=== PATIENT | male | born 1945 | race Caucasian/White ===

== ENCOUNTER 2019-02-02 10:28 | Outpatient (RCR) | payer MEDICARE, OTHER ==
--- NOTE | 2019-02-02 12:30 | Diagnostic Imaging Report ---
PROCEDURE: US Bilateral lower extremity arterial. TECHNIQUE: Multiple real-time grayscale images are obtained through both lower extremity arterial systems with color Doppler imaging and color Doppler spectral analysis. INDICATION: Leg pain and swelling. COMPARISON: There are no prior studies available for comparison. FINDINGS: There is fairly good arterial blood flow to both lower extremities. Triphasic and biphasic waveforms are seen in the common femoral, superficial femoral, and popliteal arteries. The waveforms in the trifurcation arteries do seem dampened, but there is no abrupt alteration to suggest a hemodynamically significant stenosis. IMPRESSION: There may be an element of trifurcation disease bilaterally, but there is no hemodynamically significant stenosis identified. Dictated by: Dictated on workstation # [id number]
== END 2019-05-03 | disposition home or self-care (01) ==
LOC: RAD 10:28
PROVIDERS: ATTEND Internal Medicine Interventional Cardiology
DX: I73.9 Peripheral vascular disease, unspecified (principal); I25.10 Atherosclerotic heart disease of native coronary artery without angina pectoris
CPT/HCPCS: 93306; 93922; 93925

== ENCOUNTER → 2019-04-19 | Outpatient (CLI) | payer MEDICARE ==
[~2019-04-19] MED LIST: HOLD METFORMIN - RECEIVED CONTRAST 20 ML VIAL IV SCH; IOHEXOL 350 MG/ML 100 ML (OMNIPAQUE 350) VIAL IV ONE; NS 100 ML (IVPB) BAG IV ONE
[2019-04-19 16:40] LABS: BUN/CREATININE RATIO 14; CREATININE SERUM 0.96 MG/DL (0.60-1.30); GFR ESTIMATED > 60
--- NOTE | 2019-04-19 18:19 | Diagnostic Imaging Report ---
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 FINDINGS: CTA of the neck demonstrates emphysematous changes in the upper lungs. Degenerative changes are present in the cervical spine. No fracture or subluxation is present. Sternotomy changes are present in the chest. The soft tissues of the neck demonstrate no abnormal adenopathy. The airway is clear. Vascular structures demonstrate mild atherosclerosis at the takeoff of the great vessels. The vertebral arteries appear normal. These are a little larger than normal with left being larger than the right. No stenotic lesions are present in the vertebral arteries. The basilar artery is smaller than the vertebral arteries. This is probably due to the subclavian steal. The intracranial circulation is not included. There is short segment occlusion at the origin of the right subclavian artery. No stenosis is present in the common carotid artery. There is some plaque within the right internal carotid artery and carotid bulb. No significant stenosis is identified. Left carotid artery demonstrates some mild plaque within the bulb and internal carotid. No stenosis is present. IMPRESSION: 1. There is occlusion of the right subclavian artery at its origin with reconstitution near the right vertebral artery. Both vertebral arteries are prominent in size consistent with subclavian steal. Some mild plaque is present within the carotid bifurcations and internal carotid arteries. It is a little worse on the right than the left. 2. Degenerative changes are present in the spine. 3. Emphysematous changes are present in the lungs. Dictated by: Dictated on workstation # [id number]
== END ==
LOC: RAD 16:09
PROVIDERS: ATTEND Internal Medicine Interventional Cardiology
DX: I77.1 Stricture of artery (principal); I65.29 Occlusion and stenosis of unspecified carotid artery; M43.9 Deforming dorsopathy, unspecified; M47.812 Spondylosis without myelopathy or radiculopathy, cervical region; Z98.890 Other specified postprocedural states
CPT/HCPCS: 36415; 70498; 82565; 84520

== ENCOUNTER → 2019-06-17 | Outpatient (CLI) | payer MEDICARE ==
[~2019-06-17] MED LIST changes: +CATHETER FLUSH 10 ML SYR IV PRN; -HOLD METFORMIN - RECEIVED CONTRAST 20 ML VIAL IV SCH; -IOHEXOL 350 MG/ML 100 ML (OMNIPAQUE 350) VIAL IV ONE; -NS 100 ML (IVPB) BAG IV ONE; +REGADENOSON 0.4 MG/5 ML SYR (LEXISCAN) IV ONE
[2019-06-18 12:35] VITALS: BP 169/77
--- NOTE | 2019-06-18 12:35 | Cardiology Stress Test Report ---
Stress Test Report Type of NM Stress Test: Test Type: LEXISCAN 0.4MG/5ML Date of Procedure/Referring: Date of Procedure: Jun 17, 2019 PCP Ivet Salgado MD Admitting Physician No,Local Physician Indications: Chest pain, CAD Baseline Heart Rate: 78 Baseline Blood Pressure: Blood Pressure Systolic: 169 Blood Pressure Diastolic: 77 Baseline EKG: Baseline EKG: sinus rhythm with multiform PVCs Summary & Conclusion: Summary: The patient was brought to the stress lab after informed consent was taken. Stress test was performed according to the Lexiscan protocol. 0.4 mg of IV Lexiscan was given. Low-grade exercise was performed. Baseline EKG showed sinus rhythm with multiform PVCs at 78 BPM. Initial blood pressure was 169/77 mmHg. Maximum heart rate was 88 bpm and blood pressure 181/74 mmHg. Patient did not have any chest pain. However she continued to have multiform PVCs. Stress EKG demonstrated ST depression in leads V3 and V4 as well as 2, 3, aVF which resolved during recovery. 10.77 mCi of Myoview were given for rest imaging and 30.2 mCi of Myoview given for stress imaging. Transient ischemic dilatation score 0.99, possible moderate-sized anterior distal apical reversible defect. Fixed inferior defect. Conclusion: Pharmacological stress test was positive for ischemia. 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 Possible ischemia in the distal anterior apical territory. Coronary angiography is recommended. Ivet SALGADO MD Jun 18, 2019 12:35
== END ==
LOC: CARD 09:44
PROVIDERS: ATTEND Internal Medicine Interventional Cardiology
DX: I25.10 Atherosclerotic heart disease of native coronary artery without angina pectoris (principal); E78.5 Hyperlipidemia, unspecified

== ENCOUNTER 2019-07-01 08:04 | Day surgery (SDC) | payer MEDICARE ==
[~2019-07-01] VITALS: Ht 172.7 cm; Wt 75.0 kg
[2019-07-01] VITALS (26 sets, daily range): BP systolic 129–191; BP diastolic 66–94
[2019-07-01] MEDS ORDERED: LIDOCAINE 1% INJ 20 ML 20 ML VIAL ONE (08:11)
[2019-07-01] MEDS ORDERED: HEParin (CATH LAB) 2,000 ML IV ONE (08:11)
[2019-07-01] MEDS ORDERED: NS IV 1000 ML 1,000 ML ONE (08:11)
[2019-07-01] MEDS ORDERED: NS IV 1000 ML 1,000 ML IV SCH (08:14)
[2019-07-01 08:49] LABS: HEMOGLOBIN 12.8 G/DL (13.3-17.7); MEAN PLATELET VOLUME 11.2 FL (7.4-10.4); RED CELL DISTRIBUTION WIDTH 14.8 % (10.0-14.5); WHITE BLOOD COUNT 5.9 10^3/uL (4.3-11.0)
[2019-07-01 09:14] LABS: INR 1.1 (0.8-1.4); PROTHROMBIN TIME PATIENT 14.2 SEC (12.2-14.7)
[2019-07-01 09:18] LABS: ALANINE AMINOTRANSFERASE 16 U/L (0-55); ALBUMIN 4.2 GM/DL (3.2-4.5); ALKALINE PHOSPHATASE 76 U/L (40-136); BILIRUBIN,TOTAL 0.8 MG/DL (0.1-1.0); BUN/CREATININE RATIO 12; CALCIUM 9.4 MG/DL (8.5-10.1); CARBON DIOXIDE 28 MMOL/L (21-32); CHLORIDE 103 MMOL/L (98-107); CREATININE SERUM 1.17 MG/DL (0.60-1.30); GFR ESTIMATED > 60; GLUCOSE 95 MG/DL (70-105); POTASSIUM 2.8 MMOL/L (3.6-5.0); SODIUM 143 MMOL/L (135-145); TOTAL PROTEIN 7.6 GM/DL (6.4-8.2)
[2019-07-01] MEDS ORDERED: MIDAZOLAM 5 MG/5 ML (VERSED) VIAL ONE (09:32)
[2019-07-01] MEDS ORDERED: fentaNYL INJECTION 100 MCG/2 ML AMP ONE ×2 (09:32→16:18)
[2019-07-01] MEDS ORDERED: CALC-140 PO ×2 (09:37)
[2019-07-01] MEDS ORDERED: ATOR80TA76 PO ×2 (09:37)
[2019-07-01] MEDS ORDERED: TRAZ150T72 PO ×2 (09:37)
[2019-07-01] MEDS ORDERED: IPRA3AMP31 IH ×2 (09:37)
[2019-07-01] MEDS ORDERED: IPRA0.2S51 IH (09:37)
[2019-07-01] MEDS ORDERED: TRAM50TA2 PO ×2 (09:37)
[2019-07-01] MEDS ORDERED: APIX5TAB PO ×2 (09:37)
[2019-07-01] MEDS ORDERED: PANT40TA2 PO ×2 (09:37)
[2019-07-01] MEDS ORDERED: GABA-486 PO ×2 (09:37)
[2019-07-01] MEDS ORDERED: OMEG-86 PO ×4 (09:37)
[2019-07-01] MEDS ORDERED: FLDR.1T PO ×2 (09:37)
[2019-07-01] MEDS ORDERED: ASPI325T32 PO ×2 (09:37)
--- NOTE | 2019-07-01 09:42 | NUR ---
SPOKE WITH PT (HE DID NOT HEAR WELL BUT HIS WAS IN THE ROOM), HE BROUGHT HOME MEDS, AND I WAS ABLE TO COMPLETE THE MED REC. PT WAS ABLE TO COMMUNICATE HOW HE TOOK EACH OF HIS MEDICATIONS AND THEY ALL HAD GOOD DATING. PANTOPRAZOLE: BOTTLE SIG IS 1 TAB BID, BUT PT SAYS HE ONLY TAKES ONCE DAILY (PT SAYS IF HE TAKES BID HE HAS LOOSE STOOLS) OTC MEDS: ASPIRIN 325M DAILY CALCIUM WITH VIT D: 1 DAILY FISH OIL:1 CAP MORNING AND 2 CAPS BEDTIME
[2019-07-01] MEDS ORDERED: KCL 20 MEQ TAB (K-DUR) PO NR (09:45)
[2019-07-01] MEDS ORDERED: POTASSIUM CL 10MEQ/50ML IVPB 100 ML IV ONE ×2 (09:55→11:32)
[2019-07-01] MEDS: POTASSIUM CL 10MEQ/50ML IVPB 50 ML IV SCH ×5 (10:00→23:05)
[2019-07-01] MEDS ORDERED: HEParin 1000 UNIT/ML (10ML VIAL) FOR BOLUS ONE (10:32)
[2019-07-01] MEDS ORDERED: CLOPIDOGREL 300 MG (PLAVIX) TABLET PO ONE (11:22)
[2019-07-01] MEDS ORDERED: HEParin (CATH LAB) 1,000 ML IV ONE (12:26)
--- NOTE | 2019-07-01 12:38 | Cardiac Procedure Note-CS/ASA ---
Pre-Procedure Note Pre-Op Procedure Note H&P Reviewed The H&P was reviewed, patient examined and no changes noted. Date H&P Reviewed: Jul 01, 2019 Time H&P Reviewed: 09:00 Conscious Sedation Pre-Proced Time 09:00 ASA Score 3 For ASA 3 and 4: Consider anesthesia and medical clearance. Also, for patients with a history of failed moderate sedation consider anesthesia. Airway Lungs Heart ASA score ASA 1: a normal healthy patient ASA 2: a patient with a mild systemic disease (mid diabetes, controlled hypertension, obesity ASA 3: a patient with a severe systemic disease that limits activity (angina, COPD, prior Myocardial infarction) ASA 4: a patient with an incapacitating disease that is a constant threat to life (CHF, renal failure) ASA 5: a moribund patient not expected to survive 24 hrs. (ruptured aneurysm) ASA 6: a declared brain- patient whose organs are being harvested. For emergent operations, add the letter E after the classification Mallampati Classification Grade 1 Sedation Plan Analgesia, Amnesia, Plan communicated to team members, Discussed options with patient/fam, Discussed risks with patient/fam The patient is an appropriate candidate to undergo the planned procedure, sedation, and anesthesia. The patient immediately re-assessed prior to indication. Ivet QUEEN MD Jul 01, 2019 12:38
[2019-07-01] MEDS ORDERED: PATIENT MAY USE OWN MEDS, ALL PO SCH (12:45)
--- NOTE | 2019-07-01 12:58 | Coronary Angiography & PCI ---
Coronary Angiography & PCI DATE OF PROCEDURE: 07/01/19 INDICATION: 1. Chest pain, history of CAD, abnormal nuclear stress test. 2. Significant right arm claudication, right subclavian occlusion on CT angiography. 3. Lower extremity claudication with abnormal TRINO. PREOPERATIVE DIAGNOSIS: 1. Chest pain, history of CAD, abnormal nuclear stress test. 2. Significant right arm claudication, right subclavian occlusion on CT angiography. 3. Lower extremity claudication with abnormal TRINO. POSTOPERATIVE DIAGNOSIS: 1. Severe sun'aq CAD. 2. Occluded right subclavian artery. 3. Moderate to severe right external iliac artery in-stent restenosis. 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 He presented with complain of shortness of breath, chest pain, significant right arm claudication and peripheral claudication. CT angiography of the chest shows occluded right subclavian artery. Nuclear stress test was abnormal. Supranormal TRINO suggesting significant calcification. Therefore the patient was scheduled for subclavian angiography, possible subclavian intervention, coronary angiography, possible coronary intervention, peripheral angiography, peripheral intervention. PROCEDURES PERFORMED: 1.Coronary angiography. 2.Left heart catheterization. 3. Saphenous vein graft angiography. 4. PHAN angiography. 5. Aortic root injection; medical necessity, to locate ostia of the saphenous vein grafts. 6. Aortic arch angiography, medical necessity, to see the proximal segments of the great arteries including the right brachiocephalic artery. 7. Selective angiography of the right brachiocephalic artery. 8. Selective angiography of the common carotid artery. 9. Selective angiography of the left subclavian artery. 10. Abdominal aortogram with nonselective bilateral renal angiogram. 11. Bilateral lower extremity runoff. 12. MEDICATION CARE MANAGER to right external iliac artery in-stent restenosis. 13. PTCA to in-stent restenosis in the proximal RCA, drug-eluting stent to the ostial RCA. COMPLICATIONS: None. SPECIMENS: None. ESTIMATED BLOOD LOSS: 10 mL ANESTHESIA: Conscious sedation ANTICOAGULATION: IV heparin CONTRAST: 353 ml. FLUOROSCOPY: 11.6 minutes. FLOUROSCOPY DOSE: 2639 mgy. PROCEDURE DETAILS: The patient is a 72 male and was brought to the chemical laboratory scientist after informed consent was taken. All the risks and complications were explained in detail; this included the risk of bleeding, vascular damage, stroke, CO and even . The patient was draped and prepped in the usual sterile fashion. bilateral radial arteries have been used for previous 2 surgeries. Therefore access was gained in the right femoral artery with a 6 [place] sheath. left heart catheterization, cannulization of the right coronary artery and graft angiogram was done with a JR4 catheter. Left cardiac system was engaged with a JL4 catheter. FINDINGS: 1.Left main: moderate diffuse disease. 2.LAD: occluded in the midsegment. Diffuse disease. 3.Left circumflex artery: occluded at the ostium. 4.RCA: severe in-stent restenosis of the ostial/proximal RCA stent. Moderate diffuse disease distally. 5.Left heart catheterization: LV pressure 137/4 mmHg. LVEDP 8 mmHg. Aortic pressure 136/60 mmHg. Normal LV function with no significant wall motion abnormalities. No gradient across the aortic valve. 6. Aortic root angiogram, did not show any evidence of aneurysm or dissection. Faint filling of one saphenous vein graft was noted. 7. Aortic arch angiogram, no evidence of aneurysm or dissection. Patent proximal segments of the great arteries. 8. Selective angiogram of the right brachiocephalic artery was done with a JR4 catheter. No significant disease in the brachiocephalic artery as well as the vertebral artery. However occluded subclavian artery at the ostium with no stump. 9. Selective angiogram of the common carotid artery did not show any significant disease in the proximal and midsegment. 10. Selective angiogram of the left subclavian artery did not show any significant disease in the proximal and mid left subclavian artery. 11. PHAN angiography: Atretic PHAN. Likely not used during previous CABG. 12. 2 occluded saphenous vein grafts. 13. Y shaped saphenous vein graft with 2 limbs. One limb to OM artery. It has severe mid stenosis 95 percent. The second limb supplies the mid LAD. This has severe ostial stenosis 95 percent. 14. Abdominal aortogram did not show any significant severe disease. No significant obvious disease of bilateral renal arteries. 15. Bilateral lower extremity runoff: Stents are noted in the right common iliac and external iliac artery. Moderate to severe stenosis of the right external iliac artery stent. Pullback done with a straight catheter. Gradient was over 15 mmHg. Mild disease in the right SFA. No significant disease in the popliteal artery. Three-vessel runoff below the knee, however visualization was not optimum below the knee since the patient moved. Mild diffuse disease in the left common leg artery, external iliac artery, femoral artery, popliteal artery with likely three-vessel runoff below the knee. RECOMMENDATIONS: 1. MEDICATION CARE MANAGER to the right external iliac artery in-stent restenosis is recommended. 2. PTCA/stent to the in-stent restenosis in the right ostium/proximal RCA stent is recommended. INTERVENTION DETAILS: 1. Right external iliac artery intervention: The lesion was crossed with a 035 wire. We took an SeeClickFix 35 6 x 40 x 80 balloon and 2 inflations were done at 10 liza for 3 minutes. The first inflation was done within the stent. And the second inflation was done to involve the portion just distal to the stent. Excellent results were noted. The wire and balloon were taken out with brisk flow and minimal residue stenosis. 2. PCI to the RCA: Plavix was given before the intervention. 600 mg. ACT was done once which was over 190 seconds therefore further heparin was given. JR4 guide catheter. IV heparin for anticoagulation. Whisper extra-support wire. The lesion was crossed with the whisper wire and the tip of the wire was placed distally. Dampening was noted with the guide catheter. We took the NC Quantum 2.5 x 15 mm balloon and did high pressure balloon of the entire stent segment at 1 12 liza for 31 seconds, 16 liza for 33 seconds, 18 liza for 24 seconds, 18 liza for 36 seconds. However there was still ostial stenosis noted therefore a science Yoon 2.5 x 12 mm stent was placed at 14 liza for 20 seconds. Postdilatation with the same NC Quantum balloon at 20 liza for 41 seconds. The midsegment of the previous stent was also postdilated at 20 liza for 35 seconds. Reasonable results with 20-30 percent residue stenosis. The wire and balloon were taken out. Brisk flow. No symptoms. CONCLUSIONS: 1. severe in-stent restenosis of the RCA treated with PTCA and stent to the ostium with satisfactory results. 2. Severe right external iliac artery in-stent restenosis treated successfully with a PDA with excellent results. 3. Occluded right subclavian artery at the ostium with no stump therefore intervention was not done. Will likely require brachial access for the intervention. 4. Y-shaped saphenous vein graft to the LAD and left circumflex artery. Both have high-grade stenosis in the 95 percent range. Possible staged intervention. 5. Aspirin, Plavix, Eliquis for a month. He will then DC aspirin and continue on Plavix and Eliquis long-term. 6. Observe overnight and give IV fluids. 7. Discussed at length with the family. Monique Salgado MD, FACP, FACC, [facility] Interventional Cardiology Ivet SALGADO MD Jul 01, 2019 12:58
[2019-07-01] MEDS: NS IV 1000 ML 1,000 ML IV SCH (14:30)
[2019-07-01] MEDS ORDERED: fentaNYL INJECTION 100 MCG/2 ML AMP IVP PRN ×2 (16:15)
[2019-07-01] MEDS ORDERED: ATROPINE INJECTION 1 MG/10 ML SYR (ABBOTT) ONE (16:18)
[2019-07-01] MEDS ORDERED: OMEGA 3 (FISH OIL) 1000 MG CAP PO ONE (20:30)
[2019-07-01] MEDS ORDERED: GABAPENTIN 100 MG (NEURONTIN) CAP PO ONE (20:30)
[2019-07-01] MEDS ORDERED: traZODone 150 MG (DESYREL) TABLET PO ONE (20:30)
[2019-07-01] MEDS ORDERED: APIXABAN 5 MG (ELIQUIS) TABLET PO ONE (20:30)
[2019-07-01 21:05] LABS: BUN/CREATININE RATIO 10; CALCIUM 8.8 MG/DL (8.5-10.1); CARBON DIOXIDE 25 MMOL/L (21-32); CHLORIDE 108 MMOL/L (98-107); GFR ESTIMATED > 60; GLUCOSE 84 MG/DL (70-105); MAGNESIUM 1.5 MG/DL (1.6-2.4); POTASSIUM 3.4 MMOL/L (3.6-5.0); SODIUM 145 MMOL/L (135-145)
[2019-07-01] MEDS: MAGNESIUM 1 GM/100 ML IVPB 100 ML IV SCH (23:05)
[2019-07-02] VITALS (13 sets, daily range): BP systolic 93–127; BP diastolic 33–61
[2019-07-02] MEDS: MAGNESIUM 1 GM/100 ML IVPB 100 ML IV SCH
[2019-07-02] MEDS: NS IV 1000 ML 1,000 ML IV SCH ×2 (02:57→08:49)
[2019-07-02 03:43] LABS: HEMOGLOBIN 12.6 G/DL (13.3-17.7); MEAN PLATELET VOLUME 11.3 FL (7.4-10.4); RED CELL DISTRIBUTION WIDTH 15.2 % (10.0-14.5)
[2019-07-02 04:10] LABS: BUN/CREATININE RATIO 10; CALCIUM 8.6 MG/DL (8.5-10.1); CARBON DIOXIDE 23 MMOL/L (21-32); CHLORIDE 107 MMOL/L (98-107); CREATININE SERUM 1.08 MG/DL (0.60-1.30); GFR ESTIMATED > 60; GLUCOSE 103 MG/DL (70-105); POTASSIUM 3.6 MMOL/L (3.6-5.0); SODIUM 142 MMOL/L (135-145)
[2019-07-02 04:48] LABS: MAGNESIUM 2.2 MG/DL (1.6-2.4); PHOSPHORUS 2.4 MG/DL (2.3-4.7)
[2019-07-02] MEDS ORDERED: NS IV 500 ML 500 ML ONE (05:49)
[2019-07-02] MEDS: POTASSIUM CL 10MEQ/50ML IVPB 50 ML IV SCH ×3 (06:00→06:30)
[2019-07-02] MEDS ORDERED: POTASSIUM CL 10MEQ/50ML IVPB 50 ML IV SCH (06:00)
[2019-07-02] MEDS ORDERED: KCL 20 MEQ TAB (K-DUR) PO SCH (06:00)
[2019-07-02] MEDS ORDERED: MAGNESIUM 1 GM/100 ML IVPB 100 ML IV SCH (06:00)
[2019-07-02] MEDS ORDERED: CLOPIDOGREL 75 MG (PLAVIX) TABLET PO SCH (09:00)
[2019-07-02] MEDS ORDERED: CLOP75TA69 PO ×2 (10:42)
--- NOTE | 2019-07-02 11:02 | Cardiology Discharge Summary ---
Diagnosis/Chief Complaint Date of Admission 07/01/2019 Date of Discharge 07/02/2019 Admission Diagnosis Right upper extremity claudication, Chest pain, abnormal nuclear stress test, Claudication, abnormal TRINO Final/Discharge Diagnosis CAD, Right subclavian occlusion, Severe right iliac stenosis treated successfully with balloon angioplasty. 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 He presented with complain of shortness of breath, chest pain, significant right arm claudication and peripheral claudication. CT angiography of the chest shows occluded right sub clavian artery. Nuclear stress test was abnormal. Supranormal TRINO suggesting significant calcification. Therefore the patient was scheduled for subclavian angiography, possible subclavian intervention, coronary angiography, possible coronary intervention, peripheral angiography, peripheral intervention. Discharge Summary Procedures Subclavian angiography reveals occluded right subclavian artery. Will require staged procedure with likely brachial approach. Coronary angiography reveals severe in-stent restenosis in the proximal RCA stent which was treated with balloon angioplasty and drug-eluting stent. Y-shaped saphenous vein graft to the LAD and left circumflex artery has severe disease in both the limbs, will likely require staged procedure. Severe right iliac artery in-stent restenosis treated successfully with known angioplasty. Discharge Physical Examination Stable. Hospital Course Was the Problem List Reviewed?: Yes Unremarkable. Pending Labs Laboratory Tests 07/02/19 03:25: White Blood Count 12.0, Red Blood Count 4.56, Hemoglobin 12.6, Hematocrit 40, Mean Corpuscular Volume 87, Mean Corpuscular Hemoglobin 28, Mean Corpuscular Hemoglobin Concent 32, Red Cell Distribution Width 15.2, Platelet Count 224, Mean Platelet Volume 11.3, Sodium Level 142, Potassium Level 3.6, Chloride Level 107, Carbon Dioxide Level 23, Anion Gap 12, Blood Urea Nitrogen 11, Creatinine 1.08, Estimat Glomerular Filtration Rate > 60, BUN/Creatinine Ratio 10, Glucose Level 103, Calcium Level 8.6, Phosphorus Level 2.4, Magnesium Level 2.2 Discussion & Recommendations Discussion Discharge took over 30 minutes to complete. I had discussed at length with the family about the coronary angiography, graft angiography, subclavian angiography and peripheral angiography. I also discussed the interventions that we performed and the likelihood of stage interventions in the future. I also emphasized on compliance with Plavix. For one month we will give aspirin, Plavix and Eliquis. After a month we will stop aspirin and continue Plavix and Eliquis long-term. Follow up appt.: Dr. Salgado in 3-4 weeks. Dicharge Diet: Cardiac Diet Activity as Tolerated: Yes Home Medications Reviewed patient Home Medication Reconciliation performed by pharmacy medication reconciliations denture technician and/or nursing. Patients Allergies have been reviewed. Discharge Home Medications: Reviewed and agree with Discharge Medication list on patient's Discharge Instruction sheet Condition at discharge Stable. Instructions to patient/family Discussed at length with the family. Ivet SALGADO MD Jul 02, 2019 11:02
--- NOTE | 2019-07-02 11:03 | Discharge Inst-Post CATH ---
Discharge Inst-CATH/EP Problems Reviewed?: Yes Final Diagnosis Right subclavian artery occlusion, Severe CAD, Severe right external iliac artery in-stent restenosis. Post Cardiac Cath/EP D/C Inst Follow Up/Plan Discussed at length with the family. <b>CARDIAC CATH/EP PROCEDURE DISCHARGE INSTRUCTIONS</b> ACTIVITY * Go Home directly and rest. * Limit activity of the leg (or wrist if it was used) for 7 days including aerobics, swimming, jogging, bicycling, etc. * Restrict stair-climbing for 7 days if possible, if not, climb up with your non-cath leg, then bring together on the same step. * Avoid lifting, pushing, pulling or excessive movement of the affected extremity for 7 days. * Customary sexual activity may be resumed after 2 days-use caution not to use a position that strains or causes pain to the affected extremity. * No driving for 24 hours. * NO SMOKING. * Avoid straining for bowel movements for 7 days. * Gentle walking on level ground is allowed. * Returning to work will depend on the type of procedure and the results. Your doctor will discuss this with you. CALL YOUR DOCTOR FOR ANY OF THE FOLLOWING: *If bleeding from the puncture site occurs- Apply gentle pressure to site with clean cloth and call your doctor or EMS. * If a knot or lump forms under the skin, increases in size, or causes pain. * If bruising appears to be worsening or moving further down your leg instead of disappearing. * Temperature above 101 F. CARE OF YOUR GROIN INCISION; * Bruising or purple discoloration of the skin near the puncture site is common. * You may shower only, no bathtub bathing for 5 days. Be careful to avoid slipping as your leg may feel stiff. * If a closure device was used on your femoral artery, please see the attached guide regarding care of the device and your leg. * Leave dressing on FOR 24 hours. CARE OF YOUR WRIST INCISION; * Bruising or purple discoloration of the skin near the puncture site is common. * You may shower. * DO NOT submerge wrist. * Leave dressing on FOR 24 hours. Ivet QUEEN MD Jul 02, 2019 11:03
== END 2019-07-02 13:10 ==
LOC: EDBD → CATH 08:04 → ICU 13:09 → CATH 07-02 13:10
PROVIDERS: ATTEND Internal Medicine Interventional Cardiology
DX: T82.855A Stenosis of coronary artery stent, initial encounter (principal); T82.897A Other specified complication of cardiac prosthetic devices, implants and grafts, initial encounter; I25.10 Atherosclerotic heart disease of native coronary artery without angina pectoris; I70.211 Atherosclerosis of native arteries of extremities with intermittent claudication, right leg; I77.1 Stricture of artery; I95.1 Orthostatic hypotension; I10 Essential (primary) hypertension; J44.9 Chronic obstructive pulmonary disease, unspecified; I48.0 Paroxysmal atrial fibrillation; E78.5 Hyperlipidemia, unspecified; G45.8 Other transient cerebral ischemic attacks and related syndromes; Z95.1 Presence of aortocoronary bypass graft; Z88.2 Allergy status to sulfonamides; Z79.01 Long term (current) use of anticoagulants; Z79.82 Long term (current) use of aspirin; Z87.891 Personal history of nicotine dependence
CPT/HCPCS: 36221; 36225; 36228; 36415; 37220; 75625; 75716; 75774; 80048; 80053; 83735; 84100; 85027; 85347; 85610; 85730; 87081; 93005; 93459; 93567

== ENCOUNTER → 2019-07-07 | Outpatient (CLI) | payer MEDICARE ==
[~2019-07-07] MED LIST changes: +APIX5TAB PO; +ASPI325T32 PO; +ATOR80TA76 PO; +CALC-140 PO; -CATHETER FLUSH 10 ML SYR IV PRN; +CLOP75TA69 PO; +FLDR.1T PO; +GABA-486 PO; +IPRA0.2S51 IH; +IPRA3AMP31 IH; +OMEG-86 PO; +PANT40TA2 PO; -REGADENOSON 0.4 MG/5 ML SYR (LEXISCAN) IV ONE; +RT-ALBUTEROL SULF 2.5 MG/3 ML PRE-MIX VIAL INH ONE; +TRAM50TA2 PO; +TRAZ150T72 PO
== END ==
LOC: RT 09:18 → EDBD 09:30
PROVIDERS: ATTEND Nurse Practitioner Family
DX: J44.9 Chronic obstructive pulmonary disease, unspecified (principal)
CPT/HCPCS: 94060; 94726; 94729

== ENCOUNTER → 2019-08-02 | Outpatient (CLI) | payer MEDICARE ==
[~2019-08-02] MED LIST changes: +ASPI-983 PO; +CATHETER FLUSH 10 ML SYR IV PRN; +HOLD METFORMIN - RECEIVED CONTRAST 20 ML VIAL IV SCH; +IOHEXOL 350 MG/ML 100 ML (OMNIPAQUE 350) VIAL IV ONE; +LISI-556 PO; +NS 100 ML (IVPB) BAG IV ONE; -RT-ALBUTEROL SULF 2.5 MG/3 ML PRE-MIX VIAL INH ONE; -TRAM50TA2 PO; +TRM50T PO
[2019-08-02 09:21] LABS: BUN/CREATININE RATIO 11; CREATININE SERUM 1.01 MG/DL (0.60-1.30); GFR ESTIMATED > 60
--- NOTE | 2019-08-02 10:26 | Diagnostic Imaging Report ---
EXAMINATION: CT Chest with intravenous contrast. TECHNIQUE: Multiple contiguous axial images were obtained through the chest after the uneventful administration of intravenous contrast. All CT scans use one or more of the following dose optimizing techniques: automated exposure control, MA and/or KvP adjustment based on a patient size and exam type, or iterative reconstruction. HISTORY: ALLERGIC RHINITIS,COPD,COUGH,DYSPNEA COMPARISON: None available. FINDINGS: The lungs are clear without edema or pneumonia. No pleural effusion or pneumothorax. No suspicious nodules. There is moderate to severe centrilobular emphysema. There is mild dependent atelectasis. Heart size is normal. No pericardial effusion. Aorta is normal in caliber. There is no axillary or supraclavicular lymphadenopathy. There is no mediastinal lymphadenopathy. There is a large hiatal hernia. There are severe coronary artery calcifications. There has been coronary artery bypass grafting. Median sternotomy wires are present. Limited views of the upper abdomen are unremarkable. There are no suspicious osseus lesions. IMPRESSION: 1. Moderate to severe centrilobular emphysema. 2. Large hiatal hernia. Dictated by: Dictated on workstation # [id number]
== END ==
LOC: RAD 08:55
PROVIDERS: ATTEND Nurse Practitioner Family
DX: J43.2 Centrilobular emphysema (principal); K44.9 Diaphragmatic hernia without obstruction or gangrene; J30.9 Allergic rhinitis, unspecified
CPT/HCPCS: 36415; 71260; 82565; 84520

== ENCOUNTER 2019-09-16 10:05 | Day surgery (SDC) | payer MEDICARE ==
[2019-09-16] VITALS (21 sets, daily range): BP systolic 113–170; BP diastolic 63–83
[~2019-09-16] VITALS: Ht 172.7 cm; Wt 80.0 kg
[~2019-09-16 10:05] MED LIST changes: -ASPI-983 PO; -CATHETER FLUSH 10 ML SYR IV PRN; -HOLD METFORMIN - RECEIVED CONTRAST 20 ML VIAL IV SCH; -IOHEXOL 350 MG/ML 100 ML (OMNIPAQUE 350) VIAL IV ONE; -LISI-556 PO; -NS 100 ML (IVPB) BAG IV ONE
[2019-09-16] MEDS ORDERED: NS IV 1000 ML 3,000 ML ONE (10:07)
[2019-09-16] MEDS ORDERED: HEParin 1000 UNIT/ML (10ML VIAL) FOR BOLUS ONE (10:07)
[2019-09-16] MEDS ORDERED: LIDOCAINE 1% INJ 20 ML 20 ML VIAL ONE (10:07)
[2019-09-16] MEDS ORDERED: NS IV 1000 ML 1,000 ML IV SCH (10:08)
[2019-09-16 10:39] LABS: HEMOGLOBIN 12.5 G/DL (13.3-17.7); MEAN PLATELET VOLUME 11.1 FL (7.4-10.4); RED CELL DISTRIBUTION WIDTH 14.8 % (10.0-14.5); WHITE BLOOD COUNT 5.7 10^3/uL (4.3-11.0)
[2019-09-16 10:49] LABS: INR 1.2 (0.8-1.4); PROTHROMBIN TIME PATIENT 16.1 SEC (12.2-14.7)
[2019-09-16 10:56] LABS: ALBUMIN 4.4 GM/DL (3.2-4.5); BILIRUBIN,TOTAL 0.7 MG/DL (0.1-1.0); CALCIUM 9.6 MG/DL (8.5-10.1); CREATININE SERUM 1.22 MG/DL (0.60-1.30); POTASSIUM 3.6 MMOL/L (3.6-5.0); TOTAL PROTEIN 7.6 GM/DL (6.4-8.2)
[2019-09-16] MEDS ORDERED: LISI-556 PO (11:15)
[2019-09-16] MEDS ORDERED: MIDAZOLAM 5 MG/5 ML (VERSED) VIAL ONE (13:18)
[2019-09-16] MEDS ORDERED: fentaNYL INJECTION 100 MCG/2 ML AMP ONE ×2 (13:18→15:38)
[2019-09-16] MEDS ORDERED: NS IV 1000 ML 1,000 ML ONE (15:27)
[2019-09-16] MEDS ORDERED: diphenhydrAMINE 50 MG/ML INJ (BENADRYL) ONE (15:33)
--- NOTE | 2019-09-16 16:05 | Cardiac Procedure Note-CS/ASA ---
Pre-Procedure Note Pre-Op Procedure Note H&P Reviewed The H&P was reviewed, patient examined and no changes noted. Date H&P Reviewed: Sep 16, 2019 Time H&P Reviewed: 13:00 Conscious Sedation Pre-Proced Time 13:30 ASA Score 3 For ASA 3 and 4: Consider anesthesia and medical clearance. Also, for patients with a history of failed moderate sedation consider anesthesia. Airway Lungs Heart ASA score ASA 1: a normal healthy patient ASA 2: a patient with a mild systemic disease (mid diabetes, controlled hypertension, obesity ASA 3: a patient with a severe systemic disease that limits activity (angina, COPD, prior Myocardial infarction) ASA 4: a patient with an incapacitating disease that is a constant threat to life (CHF, renal failure) ASA 5: a moribund patient not expected to survive 24 hrs. (ruptured aneurysm) ASA 6: a declared brain- patient whose organs are being harvested. For emergent operations, add the letter E after the classification Mallampati Classification Grade 1 Sedation Plan Analgesia, Amnesia, Plan communicated to team members, Discussed options with patient/fam, Discussed risks with patient/fam The patient is an appropriate candidate to undergo the planned procedure, sedation, and anesthesia. The patient immediately re-assessed prior to indication. Ivet QUEEN MD Sep 16, 2019 4:05 pm POS
--- NOTE | 2019-09-16 16:05 | Coronary Angiography Report ---
Coronary Angiography Report DATE OF PROCEDURE: 09/16/19 INDICATION: 1. Right subclavian occlusion. 2. Severe SVG stenosis to the LAD and left circumflex artery. PREOPERATIVE DIAGNOSIS: 1. Right subclavian occlusion. 2. Severe SVG stenosis to the LAD and left circumflex artery. POSTOPERATIVE DIAGNOSIS: Right subclavian occlusion, unsuccessful r ecannulization. Severe SVG stenosis to the LAD and left circumflex artery, unsuccessful PCI. HISTORY: This is a 72-year-old gentleman with significant right upper extremity claudication with known right subclavian artery occlusion. The patient also has frequent resting chest pain episodes. Previous coronary angiography showed severe in-stent restenosis and ostial disease in a diffusely diseased RCA. The ostium and the proximal segment of the RCA was treated with intervention. Patient continued to have episodes of chest pain. There is a Y-shaped saphenous vein graft that supplies the LAD as well as the OM. Both limbs of the saphenous vein graft have severe disease. Therefore staged intervention to the saphenous vein graft and intervention to the occluded right subclavian artery was recommended. PROCEDURES PERFORMED: 1. Right selective brachial artery angiogram. 2. Right selective subclavian artery angiogram. 3. Aortic root injection, medical necessity: To identify the ostium of the saphenous vein graft. 4. Saphenous vein graft angiography. 5. Selective right iliac/femoral artery angiogram 6. Right brachial access with ultrasound guidance. COMPLICATIONS: None. SPECIMENS: None. ESTIMATED BLOOD LOSS: 10 mL ANESTHESIA: Conscious sedation ANTICOAGULATION: IV heparin CONTRAST: 209 mL FLUOROSCOPY: 25.3 minutes. FLOUROSCOPY DOSE: 462 mgy. PROCEDURE DETAILS: The patient is a 72 male and was brought to the color laboratory technician after informed consent was taken. All the risks and complications were explained in detail; this included the risk of bleeding, vascular damage, stroke, LA and even . The patient was draped and prepped in the usual sterile fashion. Access was gained in the right brachial artery under ultrasound guidance FINDINGS: 1. Right selective brachial artery angiogram. Mild diffuse disease noted. 2. Right selective subclavian artery angiogram. Occluded in the ostial segment. 3. Aortic root injection, medical necessity: To identify the ostium of the saphenous vein graft. No evidence of dissection or aneurysm. 4. Saphenous vein graft angiography. Y-shaped SVG graft with one limb to the LAD with slow flow and severe proximal stenosis. The second limb supplies the left circumflex artery with severe mid disease. 5. Selective right iliac/femoral artery angiogram, patent stents in the right common/external iliac artery. Recommendation: Intervention to the right subclavian occlusion is recommended. SVG graft intervention is recommended. Interventional details: We first started with the right subclavian artery occlusion. We achieved right brachial access under ultrasound guidance. We advanced a 5 [place] angled glide catheter with the 014 command wire. However we were not able to cross the occlusion. We took the angled glide catheter out and went in with a mini support catheter however we were not able to cross the occlusion. We stopped at this point in time. We then took a LCB guide catheter but were not able to engage the SVG. Therefore we exchanged for a JR4 guide catheter with which we were able to engage the SVG. We took a filter wire 2.253.5 mm but were not able to access the ostium of the saphenous vein graft due to an acute angle. We tried numerous times with manipulating the guide catheter as well but we were not able to cross into the saphenous vein graft. At this point in time we had already given over 200 mL of contrast, therefore we decided to stop. CONCLUSIONS: Unsuccessful intervention to the occluded right subclavian artery. Unsuccessful intervention to the saphenous vein graft to the LAD and left circumflex artery. Continue long-term dual antiplatelet therapy. Monique Salgado MD, FACP, FACC, [facility] Interventional Cardiology Ivet SALGADO MD Sep 16, 2019 16:05 POS
[2019-09-16] MEDS ORDERED: PATIENT MAY USE OWN MEDS, ALL PO SCH (16:15)
[2019-09-16] MEDS: NS IV 1000 ML 1,000 ML IV SCH (16:50)
[2019-09-16] MEDS ORDERED: CATHETER FLUSH 10 ML SYR IV PRN (18:15)
[2019-09-17] VITALS: BP 135/76
[2019-09-17 01:00] VITALS: BP 123/55
[2019-09-17 03:28] LABS: HEMOGLOBIN 10.9 G/DL (13.3-17.7); MEAN PLATELET VOLUME 11.4 FL (7.4-10.4); RED CELL DISTRIBUTION WIDTH 14.6 % (10.0-14.5); WHITE BLOOD COUNT 6.4 10^3/uL (4.3-11.0)
[2019-09-17 03:49] LABS: BUN/CREATININE RATIO 13; CALCIUM 8.3 MG/DL (8.5-10.1); CARBON DIOXIDE 23 MMOL/L (21-32); CHLORIDE 107 MMOL/L (98-107); CREATININE SERUM 1.11 MG/DL (0.60-1.30); GFR ESTIMATED > 60; GLUCOSE 161 MG/DL (70-105); POTASSIUM 3.4 MMOL/L (3.6-5.0); SODIUM 140 MMOL/L (135-145)
[2019-09-17 04:00] VITALS: BP 118/49
[2019-09-17] MEDS: NS IV 1000 ML 1,000 ML IV SCH (06:40)
[2019-09-17 08:00] VITALS: BP 102/52
[2019-09-17 08:44] VITALS: BP 140/69
[2019-09-17] MEDS ORDERED: CLOPIDOGREL 75 MG (PLAVIX) TABLET PO SCH (09:00)
[2019-09-17] MEDS ORDERED: ASPIRIN E.C. 81 MG (ECOTRIN) TAB PO SCH (09:00)
[2019-09-17] MEDS ORDERED: ASPI-983 PO (09:20)
--- NOTE | 2019-09-17 09:57 | Cardiology Discharge Summary ---
Diagnosis/Chief Complaint Date of Admission 09/16/2019 Date of Discharge 09/17/2019 Admission Diagnosis Right subclavian artery stenosis, Severe CAD Final/Discharge Diagnosis Right subclavian artery occlusion, Severe CAD Chief Complaint/HPI Chief Complaint/HPI This is a 72-year-old gentleman with significant right upper extremity claudication with known right subclavian artery occlusion. The patient also has frequent resting chest pain episodes. Previous coronary angiography showed severe in-stent restenosis and ostial disease in a diffusely diseased RCA. The ostium and the proximal segment of the RCA was treated with intervention. Patient continued to have episodes of chest pain. There is a Y-shaped saphenous vein graft that supplies the LAD as well as the OM. Both limbs of the saphenous vein graft have severe disease. Therefore staged intervention to the saphenous vein graft and intervention to the occluded right subclavian artery was recommended. Discharge Summary Procedures Unsuccessful revascularization of the right subclavian artery. Unsuccessful intervention to the saphenous vein graft to the LAD and OM1. Discharge Physical Examination Normal right arm around the brachial access site. No bruit. No hematoma. Normal cardiac vascular examination. Hospital Course Was the Problem List Reviewed?: Yes Unremarkable. Pending Labs Laboratory Tests 09/17/19 02:40: White Blood Count 6.4, Red Blood Count 3.92, Hemoglobin 10.9, Hematocrit 34, Mean Corpuscular Volume 87, Mean Corpuscular Hemoglobin 28, Mean Corpuscular Hemoglobin Concent 32, Red Cell Distribution Width 14.6, Platelet Count 177, Mean Platelet Volume 11.4 09/17/19 02:45: Sodium Level 140, Potassium Level 3.4, Chloride Level 107, Carbon Dioxide Level 23, Anion Gap 10, Blood Urea Nitrogen 14, Creatinine 1.11, Estimat Glomerular Filtration Rate > 60, BUN/Creatinine Ratio 13, Glucose Level 161, Calcium Level 8.3 Discussion & Recommendations Discussion Discharge took over 30 minutes to complete. Discharge instructions were discussed at length with the patient. Patient will go home on aggressive secondary prevention measures. Follow up appt.: Follow-up in 2-3 weeks. Dicharge Diet: Cardiac Diet Activity as Tolerated: Yes Home Medications Reviewed patient Home Medication Reconciliation performed by pharmacy medication reconciliations property technician and/or nursing. Patients Allergies have been reviewed. Discharge Home Medications: Reviewed and agree with Discharge Medication list on patient's Discharge Instruction sheet Condition at discharge Stable. Instructions to patient/family Discussed at length with the patient. Ivet QUEEN MD Sep 17, 2019 09:57 POS
--- NOTE | 2019-09-17 09:58 | Discharge Inst-Post CATH ---
Discharge Inst-CATH/EP Problems Reviewed?: Yes Final Diagnosis Right subclavian artery occlusion, Severe CAD Post Cardiac Cath/EP D/C Inst Follow Up/Plan Discussed at length with the patient. Follow-up with Dr. Salgado in 2-3 weeks. <b>CARDIAC CATH/EP PROCEDURE DISCHARGE INSTRUCTIONS</b> ACTIVITY * Go Home directly and rest. * Limit activity of the leg (or wrist if it was used) for 7 days including aerobics, swimming, jogging, bicycling, etc. * Restrict stair-climbing for 7 days if possible, if not, climb up with your non-cath leg, then bring together on the same step. * Avoid lifting, pushing, pulling or excessive movement of the affected extremity for 7 days. * Customary sexual activity may be resumed after 2 days-use caution not to use a position that strains or causes pain to the affected extremity. * No driving for 24 hours. * NO SMOKING. * Avoid straining for bowel movements for 7 days. * Gentle walking on level ground is allowed. * Returning to work will depend on the type of procedure and the results. Your doctor will discuss this with you. CALL YOUR DOCTOR FOR ANY OF THE FOLLOWING: *If bleeding from the puncture site occurs- Apply gentle pressure to site with clean cloth and call your doctor or EMS. * If a knot or lump forms under the skin, increases in size, or causes pain. * If bruising appears to be worsening or moving further down your leg instead of disappearing. * Temperature above 101 F. CARE OF YOUR GROIN INCISION; * Bruising or purple discoloration of the skin near the puncture site is common. * You may shower only, no bathtub bathing for 5 days. Be careful to avoid slipping as your leg may feel stiff. * If a closure device was used on your femoral artery, please see the attached guide regarding care of the device and your leg. * Leave dressing on FOR 24 hours. CARE OF YOUR WRIST INCISION; * Bruising or purple discoloration of the skin near the puncture site is common. * You may shower. * DO NOT submerge wrist. * Leave dressing on FOR 24 hours. Ivet SALGADO MD Sep 17, 2019 09:58 POS
--- OUTSIDE RECORDS SUMMARY | 2019-10-12 07:52 | XMS REPORT | Continuity of Care Document ---
Author Organization Unknown Address Unknown Phone Unavailable Allergies Active Description Code Type Severity Reaction Onset Reported/Identified Relationship to Patient Clinical Status Yes No Allergy Information Available [id number] Drug Allergy Unknown N/A 019 Yes Sulfa (Sulfonamide Antibiotics) [id number] Drug Allergy Unknown N/A 019 Medications There is no data. Problems Date Dx Coded Attending Type Code Diagnosis Diagnosed By 02/19/2019 Ivet QUEEN MD, Ot I25.10 ATHSCL HEART DISEASE OF [place] CORONARY 02/19/2019 Ivet QUEEN MD Ot I73 .9 PERIPHERAL VASCULAR DISEASE, UNSPECIFIED 03/10/2019 Ivet QUEEN MD, Ot I25.10 ATHSCL HEART DISEASE OF [place] CORONARY 03/10/2019 Ivet QUEEN MD Ot I73 .9 PERIPHERAL VASCULAR DISEASE, UNSPECIFIED 04/20/2019 Ivet QUEEN MD Ot I65.29 OCCLUSION AND STENOSIS OF UNSPECIFIED CA 04/20/2019 Ivet QUEEN MD Ot I77 .1 STRICTURE OF ARTERY 04/20/2019 Ivet QUEEN MD Ot M43 .9 DEFORMING DORSOPATHY, UNSPECIFIED 04/20/2019 Ivet QUEEN MD Ot M47.812 SPONDYLOSIS W/O MYELOPATHY OR RADICULOPA 04/20/2019 Ivet QUEEN MD Ot Z98.890 OTHER SPECIFIED POSTPROCEDURAL STATES 05/03/2019 Ivet QUEEN MD Ot I25.10 ATHSCL HEART DISEASE OF [place] CORONARY 05/03/2019 Ivet QUEEN MD Ot I73 .9 PERIPHERAL VASCULAR DISEASE, UNSPECIFIED 05/11/2019 Ivet QUEEN MD Ot I65.29 OCCLUSION AND STENOSIS OF UNSPECIFIED CA 05/11/2019 Ivet QUEEN MD Ot I77 .1 STRICTURE OF ARTERY 05/11/2019 Ivet QUEEN MD Ot M43 .9 DEFORMING DORSOPATHY, UNSPECIFIED 05/11/2019 Ivet QUEEN MD Ot M47.812 SPONDYLOSIS W/O MYELOPATHY OR RADICULOPA 05/11/2019 Ivet QUEEN MD Ot Z98.890 OTHER SPECIFIED POSTPROCEDURAL STATES 05/11/2019 Ivet QUEEN MD Ot I25.10 ATHSCL HEART DISEASE OF [place] CORONARY 05/11/2019 Ivet QUEEN MD Ot I73 .9 PERIPHERAL VASCULAR DISEASE, UNSPECIFIED 06/17/2019 Ivet QUEEN MD Ot I65.29 OCCLUSION AND STENOSIS OF UNSPECIFIED CA 06/17/2019 Ivet QUEEN MD Ot I77 .1 STRICTURE OF ARTERY 06/17/2019 Ivet QUEEN MD Ot M43 .9 DEFORMING DORSOPATHY, UNSPECIFIED 06/17/2019 Ivet QUEEN MD Ot M47.812 SPONDYLOSIS W/O MYELOPATHY OR RADICULOPA 06/17/2019 Ivet QUEEN MD Ot Z98.890 OTHER SPECIFIED POSTPROCEDURAL STATES 06/17/2019 Ivet QUEEN MD Ot I25.10 ATHSCL HEART DISEASE OF [place] CORONARY 06/17/2019 Ivet QUEEN MD Ot I73 .9 PERIPHERAL VASCULAR DISEASE, UNSPECIFIED 06/17/2019 Ivet QUEEN MD Ot R07.89 OTHER CHEST PAIN 06/17/2019 Ivet QUEEN MD Ot R07.89 OTHER CHEST PAIN 06/18/2019 Ivet QUEEN MD Ot R07.89 OTHER CHEST PAIN 07/01/2019 Ivet QUEEN MD Ot I25.10 ATHSCL HEART DISEASE OF [place] CORONARY 07/01/2019 Ivet QUEEN MD Ot I73 .9 PERIPHERAL VASCULAR DISEASE, UNSPECIFIED 07/02/2019 Ivet QUEEN MD Ot I65.29 OCCLUSION AND STENOSIS OF UNSPECIFIED CA 07/02/2019 Ivet QUEEN MD Ot I77 .1 STRICTURE OF ARTERY 07/02/2019 Ivet QUEEN MD Ot M43 .9 DEFORMING DORSOPATHY, UNSPECIFIED 07/02/2019 Ivet QUEEN MD Ot M47.812 SPONDYLOSIS W/O MYELOPATHY OR RADICULOPA 07/02/2019 Ivet QUEEN MD Ot Z98.890 OTHER SPECIFIED POSTPROCEDURAL STATES 07/02/2019 Ivet QUEEN MD Ot E78 .5 HYPERLIPIDEMIA, UNSPECIFIED 07/02/2019 Ivet QUEEN MD Ot I25.10 ATHSCL HEART DISEASE OF [place] CORONARY 07/02/2019 Ivet QUEEN MD Ot I25.10 ATHSCL HEART DISEASE OF [place] CORONARY 07/02/2019 Ivet QUEEN MD Ot I73 .9 PERIPHERAL VASCULAR DISEASE, UNSPECIFIED 07/02/2019 Ivet QUEEN MD Ot E78 .5 HYPERLIPIDEMIA, UNSPECIFIED 07/02/2019 Ivet QUEEN MD Ot 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 07/02/2019 Ivet QUEEN MD Ot I10 ESSENTIAL (PRIMARY) HYPERTENSION 07/02/2019 Ivet QUEEN MD Ot I25.10 ATHSCL HEART DISEASE OF [place] CORONARY 07/02/2019 Ivet QUEEN MD Ot I48 .0 PAROXYSMAL ATRIAL FIBRILLATION 07/02/2019 Ivet QUEEN MD Ot 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 07/02/2019 Ivet QUEEN MD Ot I77 .1 STRICTURE OF ARTERY 07/02/2019 Ivet QUEEN MD Ot I95 .1 ORTHOSTATIC HYPOTENSION 07/02/2019 Ivet QUEEN MD Ot J44 .9 CHRONIC OBSTRUCTIVE PULMONARY DISEASE, U 07/02/2019 Ivet QUEEN MD Ot T82.855A STENOSIS OF CORONARY ARTERY STENT, INITI 07/02/2019 Ivet QUEEN MD Ot T82.897A OTH COMPLICATION OF CARDIAC PROSTH DEV/G 07/02/2019 Ivet QUEEN MD Ot Z79.01 ASSISTED (CURRENT) USE OF ANTICOAGULANT 07/02/2019 Ivet QUEEN MD Ot Z79.82 ASSIGNMENT DESK EDITOR (CURRENT) USE OF ASPIRIN 07/02/2019 Ivet QUEEN MD Ot Z87.891 PERSONAL HISTORY OF NICOTINE DEPENDENCE 07/02/2019 Ivet QUEEN MD, Ot Z88 .2 ALLERGY STATUS TO SULFONAMIDES STATUS 07/02/2019 Ivet QUEEN MD Ot 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 07/09/2019 JACQUELYN SAINI APRN Ot J44.9 CHRONIC OBSTRUCTIVE PULMONARY DISEASE, U 07/12/2019 JACQUELYN SAINI APRN Ot J44.9 CHRONIC OBSTRUCTIVE PULMONARY DISEASE, U 07/12/2019 Ivet QUEEN MD Ot I65.29 OCCLUSION AND STENOSIS OF UNSPECIFIED CA 07/12/2019 Ivet QUEEN MD Ot I77 .1 STRICTURE OF ARTERY 07/12/2019 Ivet QUEEN MD Ot M43 .9 DEFORMING DORSOPATHY, UNSPECIFIED 07/12/2019 Ivet QUEEN MD Ot M47.812 SPONDYLOSIS W/O MYELOPATHY OR RADICULOPA 07/12/2019 Ivet QUEEN MD Ot Z98.890 OTHER SPECIFIED POSTPROCEDURAL STATES 07/12/2019 Ivet QUEEN MD Ot E78 .5 HYPERLIPIDEMIA, UNSPECIFIED 07/12/2019 Ivet QUEEN MD Ot I25.10 ATHSCL HEART DISEASE OF [place] CORONARY 07/12/2019 Ivet QUEEN MD Ot I25.10 ATHSCL HEART DISEASE OF [place] CORONARY 07/12/2019 Ivet QUEEN MD Ot I73 .9 PERIPHERAL VASCULAR DISEASE, UNSPECIFIED 07/12/2019 JACQUELYN SAINI APRN Ot J44.9 CHRONIC OBSTRUCTIVE PULMONARY DISEASE, U 07/13/2019 JACQUELYN SAINI APRN Ot J44.9 CHRONIC OBSTRUCTIVE PULMONARY DISEASE, U 08/03/2019 JACQUELYN SAINI APRN Ot J30.9 ALLERGIC RHINITIS, UNSPECIFIED 08/03/2019 JACQUELYN SAINI APRN Ot J43.2 CENTRILOBULAR EMPHYSEMA 08/03/2019 JACQUELYN SAINI APRN Ot K44.9 DIAPHRAGMATIC HERNIA WITHOUT OBSTRUCTION 08/27/2019 Ivet QUEEN MD Ot I65.29 OCCLUSION AND STENOSIS OF UNSPECIFIED CA 08/27/2019 Ivet QUEEN MD Ot I77 .1 STRICTURE OF ARTERY 08/27/2019 Ivet QUEEN MD Ot M43 .9 DEFORMING DORSOPATHY, UNSPECIFIED 08/27/2019 Ivet QUEEN MD Ot M47.812 SPONDYLOSIS W/O MYELOPATHY OR RADICULOPA 08/27/2019 Ivet QUEEN MD Ot Z98.890 OTHER SPECIFIED POSTPROCEDURAL STATES 08/27/2019 Ivet QUEEN MD Ot E78 .5 HYPERLIPIDEMIA, UNSPECIFIED 08/27/2019 Ivet QUEEN MD Ot I25.10 ATHSCL HEART DISEASE OF [place] CORONARY 08/27/2019 Ivet QUEEN MD Ot I25.10 ATHSCL HEART DISEASE OF [place] CORONARY 08/27/2019 Ivet QUEEN MD Ot I73 .9 PERIPHERAL VASCULAR DISEASE, UNSPECIFIED 08/27/2019 JACQUELYN SAINI APRN Ot J44.9 CHRONIC OBSTRUCTIVE PULMONARY DISEASE, U 08/27/2019 JACQUELYN SAINI APRN Ot J30.9 ALLERGIC RHINITIS, UNSPECIFIED 08/27/2019 JACQUELYN SAINI APRN Ot J43.2 CENTRILOBULAR EMPHYSEMA 08/27/2019 JACQUELYN SAINI APRN Ot K44.9 DIAPHRAGMATIC HERNIA WITHOUT OBSTRUCTION 09/06/2019 Ivet QUEEN MD Ot I65.29 OCCLUSION AND STENOSIS OF UNSPECIFIED CA 09/06/2019 Ivet QUEEN MD Ot I77 .1 STRICTURE OF ARTERY 09/06/2019 Ivet QUEEN MD Ot M43 .9 DEFORMING DORSOPATHY, UNSPECIFIED 09/06/2019 Ivet QUEEN MD Ot M47.812 SPONDYLOSIS W/O MYELOPATHY OR RADICULOPA 09/06/2019 Ivet QUEEN MD Ot Z98.890 OTHER SPECIFIED POSTPROCEDURAL STATES 09/06/2019 Ivet QUEEN MD Ot E78 .5 HYPERLIPIDEMIA, UNSPECIFIED 09/06/2019 Ivet QUEEN MD Ot I25.10 ATHSCL HEART DISEASE OF [place] CORONARY 09/06/2019 Ivet QUEEN MD Ot I25.10 ATHSCL HEART DISEASE OF [place] CORONARY 09/06/2019 Ivet QUEEN MD Ot I73 .9 PERIPHERAL VASCULAR DISEASE, UNSPECIFIED 09/06/2019 JACQUELYN SAINI APRN Ot J44.9 CHRONIC OBSTRUCTIVE PULMONARY DISEASE, U 09/06/2019 JACQUELYN SAINI APRN Ot J30.9 ALLERGIC RHINITIS, UNSPECIFIED 09/06/2019 JACQUELYN SAINI APRN Ot J43.2 CENTRILOBULAR EMPHYSEMA 09/06/2019 JACQUELYN SAINI APRN Ot K44.9 DIAPHRAGMATIC HERNIA WITHOUT OBSTRUCTION 09/14/2019 Ivet QUEEN MD Ot E78 .5 HYPERLIPIDEMIA, UNSPECIFIED 09/14/2019 Ivet QUEEN MD Ot 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 09/14/2019 Ivet QUEEN MD Ot I10 ESSENTIAL (PRIMARY) HYPERTENSION 09/14/2019 Ivet QUEEN MD Ot I25.10 ATHSCL HEART DISEASE OF [place] CORONARY 09/14/2019 Ivet QUEEN MD Ot I48 .0 PAROXYSMAL ATRIAL FIBRILLATION 09/14/2019 Ivet QUEEN MD Ot 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 09/14/2019 Ivet QUEEN MD Ot I77 .1 STRICTURE OF ARTERY 09/14/2019 Ivet QUEEN MD Ot I95 .1 ORTHOSTATIC HYPOTENSION 09/14/2019 Ivet QUEEN MD Ot J44 .9 CHRONIC OBSTRUCTIVE PULMONARY DISEASE, U 09/14/2019 Ivet QUEEN MD Ot T82.855A STENOSIS OF CORONARY ARTERY STENT, INITI 09/14/2019 Ivet QUEEN MD Ot T82.897A OTH COMPLICATION OF CARDIAC PROSTH DEV/G 09/14/2019 Ivet QUEEN MD, Ot Z79.01 ASSISTED (CURRENT) USE OF ANTICOAGULANT 09/14/2019 Ivet QUEEN MD Ot Z79.82 ASSIGNMENT DESK EDITOR (CURRENT) USE OF ASPIRIN 09/14/2019 Ivet QUEEN MD Ot Z87.891 PERSONAL HISTORY OF NICOTINE DEPENDENCE 09/14/2019 Ivet QUEEN MD Ot Z88 .2 ALLERGY STATUS TO SULFONAMIDES STATUS 09/14/2019 Ivet QUEEN MD, Ot 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 09/14/2019 Ivet QUEEN MD Ot E78 .5 HYPERLIPIDEMIA, UNSPECIFIED 09/14/2019 Ivet QUEEN MD Ot I25.10 ATHSCL HEART DISEASE OF [place] CORONARY 09/20/2019 Ivet QUEEN MD, Ot E78 .5 HYPERLIPIDEMIA, UNSPECIFIED 09/20/2019 Ivet QUEEN MD Ot 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 09/20/2019 Ivet QUEEN MD Ot I10 ESSENTIAL (PRIMARY) HYPERTENSION 09/20/2019 Ivet QUEEN MD Ot I25.10 ATHSCL HEART DISEASE OF [place] CORONARY 09/20/2019 Ivet QUEEN MD Ot I48 .0 PAROXYSMAL ATRIAL FIBRILLATION 09/20/2019 Ivet QUEEN MD Ot 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 09/20/2019 Ivet QUEEN MD Ot I77 .1 STRICTURE OF ARTERY 09/20/2019 Ivet QUEEN MD Ot I95 .1 ORTHOSTATIC HYPOTENSION 09/20/2019 Ivet QUEEN MD Ot J44 .9 CHRONIC OBSTRUCTIVE PULMONARY DISEASE, U 09/20/2019 Ivet QUEEN MD Ot T82.855A STENOSIS OF CORONARY ARTERY STENT, INITI 09/20/2019 Ivet QUEEN MD, Ot T82.897A OTH COMPLICATION OF CARDIAC PROSTH DEV/G 09/20/2019 Ivet QUEEN MD, Ot Z79.01 ASSISTED (CURRENT) USE OF ANTICOAGULANT 09/20/2019 Ivet QUEEN MD Ot Z79.82 ASSIGNMENT DESK EDITOR (CURRENT) USE OF ASPIRIN 09/20/2019 Ivet QUEEN MD, Ot Z87.891 PERSONAL HISTORY OF NICOTINE DEPENDENCE 09/20/2019 Ivet QUEEN MD, Ot Z88 .2 ALLERGY STATUS TO SULFONAMIDES STATUS 09/20/2019 Ivet QUEEN MD Ot 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 09/23/2019 Ivet QUEEN MD Ot E78 .5 HYPERLIPIDEMIA, UNSPECIFIED 09/23/2019 Ivet QUEEN MD, Ot I48 .0 PAROXYSMAL ATRIAL FIBRILLATION 09/23/2019 Ivet QUEEN MD, Ot I65.29 OCCLUSION AND STENOSIS OF UNSPECIFIED CA 09/23/2019 Ivet QUEEN MD Ot I70.218 ATHSCL [place] ARTERIES OF EXTRM W INTRMT 09/23/2019 Ivet QUEEN MD Ot I77 .1 STRICTURE OF ARTERY 09/23/2019 Ivet QEUEN MD Ot I95 .1 ORTHOSTATIC HYPOTENSION 09/23/2019 Ivet QUEEN MD Ot J44 .9 CHRONIC OBSTRUCTIVE PULMONARY DISEASE, U 09/23/2019 Ivet QUEEN MD, Ot Z79.01 ASSISTED (CURRENT) USE OF ANTICOAGULANT 09/23/2019 Ivet QUEEN MD Ot Z79.02 ASSISTED (CURRENT) USE OF ANTITHROMBOTI 09/23/2019 Ivet QUEEN MD, Ot Z79.899 OTHER ASSIGNMENT DESK EDITOR (CURRENT) DRUG THERAPY 09/23/2019 Ivet QUEEN MD, Ot Z87.891 PERSONAL HISTORY OF NICOTINE DEPENDENCE 09/23/2019 Ivet QUEEN MD, Ot Z88 .2 ALLERGY STATUS TO SULFONAMIDES STATUS Procedures There is no data. Results Test Result Range Automated blood complete blood count (he mogram) panel - 07/01/19 08:37 Blood leukocytes automated count (number/volume) 5.9 10*3/uL 4.3-11.0 Blood erythrocytes automated count (number/volume) 4.58 10*6/uL 4.35-5.85 Venous blood hemoglobin measurement (mass/volume) 12.8 g/dL 13.3-17.7 Blood hematocrit (volume fraction) 40 % 40-54 Automated erythrocyte mean corpuscular volume 87 [ foz_us] 80-99 Automated erythrocyte mean corpuscular h emoglobin (mass per erythrocyte) 28 pg 25-34 Automated erythrocyte mean corpuscular h emoglobin concentration measurement (mass/volume) 32 g/dL 32-36 Automated erythrocyte distribution width ratio 14. 8 % 10.0- 14.5 Automated blood platelet count (count/volume) 212 10*3/uL 130-400 Automated blood platelet mean volume measurement 11.2 [foz_us] 7.4-10.4 PT panel in platelet poor plasma by coag ulation assay - 07/01/19 08:37 Prothrombin time (PT) in platelet poor plasma by coagu lation assay 14.2 s 12.2-14.7 INR in platelet poor plasma or blood by coagulation as say 1.1 0.8-1.4 Activated partial thromboplastin time (a PTT) in platelet poor plasma bycoagulation assay - 07/01/19 08:37 Activated partial thromboplastin time (a PTT) in platelet poor plasma bycoagulation assay 28 s 24-35 Comprehensive metabolic panel - 07/01/19 08:37 Serum or plasma sodium measurement (moles/volume) 143 mmol/L 135-145 Serum or plasma potassium measurement (moles/volume) 2.8 mmol/L 3.6-5.0 Serum or plasma chloride measurement (moles/volume) 103 mmol/L 98-107 Carbon dioxide 28 mmol/L 21-32 Serum or plasma anion gap determination (moles/volume) 12 mmol/L 5-14 Serum or plasma urea nitrogen measurement (mass/volume ) 14 mg/dL 7-18 Serum or plasma creatinine measurement (mass/volume) 1.17 mg/dL 0.60-1.30 Serum or plasma urea nitrogen/creatinine mass ratio 12 NRG Serum or plasma creatinine measurement w ith calculation of estimated glomerular filtration rate > NRG Serum or plasma glucose measurement (mass/volume) 95 mg/dL 70-105 Serum or plasma calcium measurement (mass/volume) 9.4 mg/dL 8.5-10.1 Serum or plasma total bilirubin measurement (mass/volu me) 0.8 mg/dL 0.1-1.0 Serum or plasma alkaline phosphatase edie surement (enzymatic activity/volume) 76 U/L 40-136 Serum or plasma aspartate aminotransfera se measurement (enzymatic activity/volume) 25 U/L 5-34 Serum or plasma alanine aminotransferase measurement (enzymatic activity/volume) 16 U/L 0-55 Serum or plasma protein measurement (mass/volume) 7.6 g/dL 6.4-8.2 Serum or plasma albumin measurement (mass/volume) 4.2 g/dL 3.2-4.5 CALCIUM CORRECTED 9.2 mg/dL 8.5-10.1 Methicillin resistant Staphylococcus aur eus (MRSA) screening culture - 07/01/19 08:37 MRSA SCREEN RESULT MRSA ISOLATED NRG Activated partial thromboplastin time (a PTT) in platelet poor plasma bycoagulation assay - 07/01/19 15:40 Activated partial thromboplastin time (a PTT) in platelet poor plasma bycoagulation assay 53 s 24-35 Whole blood basic metabolic panel - 06/13 07/01 20:35 Serum or plasma sodium measurement (moles/volume) 145 mmol/L 135-145 Serum or plasma potassium measurement (moles/volume) 3.4 mmol/L 3.6-5.0 Serum or plasma chloride measurement (moles/volume) 108 mmol/L 98-107 Carbon dioxide 25 mmol/L 21-32 Serum or plasma anion gap determination (moles/volume) 12 mmol/L 5-14 Serum or plasma urea nitrogen measurement (mass/volume ) 10 mg/dL 7-18 Serum or plasma creatinine measurement (mass/volume) 1.00 mg/dL 0.60-1.30 Serum or plasma urea nitrogen/creatinine mass ratio 10 NRG Serum or plasma creatinine measurement w ith calculation of estimated glomerular filtration rate > NRG Serum or plasma glucose measurement (mass/volume) 84 mg/dL 70-105 Serum or plasma calcium measurement (mass/volume) 8.8 mg/dL 8.5-10.1 Magnesium - 07/01/19 20:35 Magnesium 1.5 mg/dL 1.6-2.4 Automated blood complete blood count (he mogram) panel - 07/02/19 03:25 Blood leukocytes automated count (number/volume) 12.0 10*3/uL 4.3-11.0 Blood erythrocytes automated count (number/volume) 4.56 10*6/uL 4.35-5.85 Venous blood hemoglobin measurement (mass/volume) 12.6 g/dL 13.3-17.7 Blood hematocrit (volume fraction) 40 % 40-54 Automated erythrocyte mean corpuscular volume 87 [ foz_us] 80-99 Automated erythrocyte mean corpuscular h emoglobin (mass per erythrocyte) 28 pg 25-34 Automated erythrocyte mean corpuscular h emoglobin concentration measurement (mass/volume) 32 g/dL 32-36 Automated erythrocyte distribution width ratio 15. 2 % 10.0- 14.5 Automated blood platelet count (count/volume) 224 10*3/uL 130-400 Automated blood platelet mean volume measurement 11.3 [foz_us] 7.4-10.4 Whole blood basic metabolic panel - 06/14 03:25 Serum or plasma sodium measurement (moles/volume) 142 mmol/L 135-145 Serum or plasma potassium measurement (moles/volume) 3.6 mmol/L 3.6-5.0 Serum or plasma chloride measurement (moles/volume) 107 mmol/L 98-107 Carbon dioxide 23 mmol/L 21-32 Serum or plasma anion gap determination (moles/volume) 12 mmol/L 5-14 Serum or plasma urea nitrogen measurement (mass/volume ) 11 mg/dL 7-18 Serum or plasma creatinine measurement (mass/volume) 1.08 mg/dL 0.60-1.30 Serum or plasma urea nitrogen/creatinine mass ratio 10 NRG Serum or plasma creatinine measurement w ith calculation of estimated glomerular filtration rate > NRG Serum or plasma glucose measurement (mass/volume) 103 mg/dL 70-105 Serum or plasma calcium measurement (mass/volume) 8.6 mg/dL 8.5-10.1 Serum or plasma phosphate measurement (m ass/volume) - 07/02/19 03:25 Serum or plasma phosphate measurement (mass/volume) 2.4 mg/dL 2.3-4.7 Magnesium - 07/02/19 03:25 Magnesium 2.2 mg/dL 1.6-2.4 Automated blood complete blood count (he mogram) panel - 09/16/19 10:30 Blood leukocytes automated count (number/volume) 5.7 10*3/uL 4.3-11.0 Blood erythrocytes automated count (number/volume) 4.50 10*6/uL 4.35-5.85 Venous blood hemoglobin measurement (mass/volume) 12.5 g/dL 13.3-17.7 Blood hematocrit (volume fraction) 39 % 40-54 Automated erythrocyte mean corpuscular volume 87 [ foz_us] 80-99 Automated erythrocyte mean corpuscular h emoglobin (mass per erythrocyte) 28 pg 25-34 Automated erythrocyte mean corpuscular h emoglobin concentration measurement (mass/volume) 32 g/dL 32-36 Automated erythrocyte distribution width ratio 14. 8 % 10.0- 14.5 Automated blood platelet count (count/volume) 208 10*3/uL 130-400 Automated blood platelet mean volume measurement 11.1 [foz_us] 7.4-10.4 PT panel in platelet poor plasma by coag ulation assay - 09/16/19 10:30 Prothrombin time (PT) in platelet poor plasma by coagu lation assay 16.1 s 12.2-14.7 INR in platelet poor plasma or blood by coagulation as say 1.2 0.8-1.4 Activated partial thromboplastin time (a PTT) in platelet poor plasma bycoagulation assay - 09/16/19 10:30 Activated partial thromboplastin time (a PTT) in platelet poor plasma bycoagulation assay 31 s 24-35 Comprehensive metabolic panel - 09/16/19 10:30 Serum or plasma sodium measurement (moles/volume) 143 mmol/L 135-145 Serum or plasma potassium measurement (moles/volume) 3.6 mmol/L 3.6-5.0 Serum or plasma chloride measurement (moles/volume) 104 mmol/L 98-107 Carbon dioxide 26 mmol/L 21-32 Serum or plasma anion gap determination (moles/volume) 13 mmol/L 5-14 Serum or plasma urea nitrogen measurement (mass/volume ) 13 mg/dL 7-18 Serum or plasma creatinine measurement (mass/volume) 1.22 mg/dL 0.60-1.30 Serum or plasma urea nitrogen/creatinine mass ratio 11 NRG Serum or plasma creatinine measurement w ith calculation of estimated glomerular filtration rate 58 NRG Serum or plasma glucose measurement (mass/volume) 98 mg/dL 70-105 Serum or plasma calcium measurement (mass/volume) 9.6 mg/dL 8.5-10.1 Serum or plasma total bilirubin measurement (mass/volu me) 0.7 mg/dL 0.1-1.0 Serum or plasma alkaline phosphatase edie surement (enzymatic activity/volume) 74 U/L 40-136 Serum or plasma aspartate aminotransfera se measurement (enzymatic activity/volume) 31 U/L 5-34 Serum or plasma alanine aminotransferase measurement (enzymatic activity/volume) 22 U/L 0-55 Serum or plasma protein measurement (mass/volume) 7.6 g/dL 6.4-8.2 Serum or plasma albumin measurement (mass/volume) 4.4 g/dL 3.2-4.5 CALCIUM CORRECTED 9.3 mg/dL 8.5-10.1 Methicillin resistant Staphylococcus aur eus (MRSA) screening culture - 09/16/19 10:30 Methicillin resistant Staphylococcus aureus (MRSA) scr eening culture NEG NRG Automated blood complete blood count (he mogram) panel - 09/17/19 02:40 Blood leukocytes automated count (number/volume) 6.4 10*3/uL 4.3-11.0 Blood erythrocytes automated count (number/volume) 3.92 10*6/uL 4.35-5.85 Venous blood hemoglobin measurement (mass/volume) 10.9 g/dL 13.3-17.7 Blood hematocrit (volume fraction) 34 % 40-54 Automated erythrocyte mean corpuscular volume 87 [ foz_us] 80-99 Automated erythrocyte mean corpuscular h emoglobin (mass per erythrocyte) 28 pg 25-34 Automated erythrocyte mean corpuscular h emoglobin concentration measurement (mass/volume) 32 g/dL 32-36 Automated erythrocyte distribution width ratio 14. 6 % 10.0- 14.5 Automated blood platelet count (count/volume) 177 10*3/uL 130-400 Automated blood platelet mean volume measurement 11.4 [foz_us] 7.4-10.4 Whole blood basic metabolic panel - 03/31 02:45 Serum or plasma sodium measurement (moles/volume) 140 mmol/L 135-145 Serum or plasma potassium measurement (moles/volume) 3.4 mmol/L 3.6-5.0 Serum or plasma chloride measurement (moles/volume) 107 mmol/L 98-107 Carbon dioxide 23 mmol/L 21-32 Serum or plasma anion gap determination (moles/volume) 10 mmol/L 5-14 Serum or plasma urea nitrogen measurement (mass/volume ) 14 mg/dL 7-18 Serum or plasma creatinine measurement (mass/volume) 1.11 mg/dL 0.60-1.30 Serum or plasma urea nitrogen/creatinine mass ratio 13 NRG Serum or plasma creatinine measurement w ith calculation of estimated glomerular filtration rate > NRG Serum or plasma glucose measurement (mass/volume) 161 mg/dL 70-105 Serum or plasma calcium measurement (mass/volume) 8.3 mg/dL 8.5-10.1 Encounters ACCT No. Visit Date/Time Discharge Status Pt. Type Provider Facility Loc./Unit Complaint [id number] 09/16/2019 10:05:00 13:08:00 DIS Outpatient Ivet QUEEN MD [facility] RT SUBCLAVIAN OCCLUSION [id number] 08/02/2019 08:55:00 23:59:59 CLS Outpatient JACQUELYN SAINI APRN [facility] RAD ALLERGIC RHINITIS,COPD,COUGH,DYSPNEA [id number] 07/07/2019 09:18:00 23:59:59 CLS Outpatient JACQUELYN SAINI APRN [facility] RT COPD [id number] 07/01/2019 08:04:00 13:10:00 DIS Outpatient Ivet QUEEN MD [facility] CATH CHEST PAIN,ABN NUCLEAR STRESS TEST [id number] 06/17/2019 09:44:00 23:59:59 CLS Outpatient Ivet QUEEN MD [facility] CARD CAD [id number] 05/04/2019 10:30:00 23:59:59 CLS Preadmit Ivet QUEEN MD [facility] RAD CAD [id number] 02/02/2019 10:28:00 00:01:00 DIS Outpatient Ivet QUEEN MD [facility] RAD CAD [id number] 04/19/2019 16:09:00 07/08/2 019 23:59:59 CLS Outpatient BERNICE MACDONALD, M CINDI [facility] RAD CAROTID ARTERY STENOSIS
== END 2019-09-17 13:08 | disposition home or self-care (01) ==
LOC: CATH 10:05 → ICU 16:37 → CATH 09-17 13:08
PROVIDERS: ATTEND Internal Medicine Interventional Cardiology
DX: I77.1 Stricture of artery (principal); I65.29 Occlusion and stenosis of unspecified carotid artery; I70.218 Atherosclerosis of native arteries of extremities with intermittent claudication, other extremity; J44.9 Chronic obstructive pulmonary disease, unspecified; I95.1 Orthostatic hypotension; I48.0 Paroxysmal atrial fibrillation; E78.5 Hyperlipidemia, unspecified; Z79.01 Long term (current) use of anticoagulants; Z88.2 Allergy status to sulfonamides; Z79.899 Other long term (current) drug therapy; Z87.891 Personal history of nicotine dependence; Z79.02 Long term (current) use of antithrombotics/antiplatelets
CPT/HCPCS: 36415; 80048; 80053; 85027; 85610; 85730; 87081; 93005